=== PATIENT | female | born 1980 | race Caucasian/White ===

== ENCOUNTER 2016-05-18 12:14 | Emergency (ER) | payer BC, OTHER ==
[2016-05-18 12:59] VITALS: BP 141/62
[2016-05-18] MEDS ORDERED: Ibuprofen TAB* 400 MG PO ONE (13:03)
[2016-05-18] MEDS ORDERED: Tetan/Diph/Pertus SYR(Tdap)* 0.5 ML SYR(BOOSTRIX) use SYR IM ONE (13:13)
--- NOTE | 2016-05-18 13:23 | UC ---
Laceration HPI - HPI Summary HPI Summary: The patient comes in today for: 1. Left hand laceration: Onset: 4-5 hours ago. Palliative/provocative: Hand movement. Rest makes it better. Quality: Burning, ache. Region: Palm of the left hand. Severity: 6/10 Time: Constant. Associated symptoms: Tetanus vaccine: unknown date of last tetanus. Injury: She was using a kitchen knife to cut up carrots for horses. LMP: 1-2 weeks ago. * - History Of Current Complaint Chief Complaint: UCLaceration Stated Complaint: HAND LACERATION Time Seen by Provider: 05/18/16 13:02 Hx Obtained From: Patient - Allergies/Home Medications Allergies/Adverse Reactions: Allergies Allergy/AdvReac Type Severity Reaction Status Date / Time No Known Allergies Allergy Verified 05/18/16 12:59 Home Medications: Home Medications NK [No Home Medications Reported] 05/18/16 [History Confirmed 05/18/16] PMH/Surg Hx/FS Hx/Imm Hx Previously Healthy: Yes Endocrine History Of: Denies: Diabetes, Thyroid Disease, Hyperthyroidism, Hypothyroidism, Dyslipidemia Cardiovascular History Of: Denies: Cardiac Disorders, Hypertension, Pacemaker/ICD, Myocardial Infarction , Congestive Heart Failure, Atrial Fibrillation, Deep Vein Thrombosis, Bleeding Disorders Respiratory History Of: Denies: COPD, Asthma, Bronchitis, Pneumonia, Pulmonary Embolism GI/ History Of: Denies: Gastroesophageal Reflux, Ulcer, Gastrointestinal Bleed, Gall Bladder Disease, Kidney Stones, Diverticulitis, Renal Disease, Urosepsis Neurological History Of: Denies: TIA, CVA, Dementia, Seizures, Migraine Psychological History Of: Denies: Anxiety, Depression, Bipolar Disorder, Schizophrenia, Post Traumatic Stress Disorder Cancer History Of: Denies: Lung Cancer, Colorectal Cancer, Breast Cancer, Prostate Cancer, Cervical Cancer Other History Of: Negative For: HIV, Hepatitis B, Hepatitis C, Anticoagulant Therapy - Surgical History Surgical History: None - Family History Known Family History: Negative: Cardiac Disease, Hypertension - Social History Occupation: Employed Full-time Alcohol Use: Weekly Substance Use Type: None Smoking Status (MU): Former Smoker - Immunization History Most Recent Tetanus Shot: unknown Review of Systems Constitutional: Negative Skin: Negative Eyes: Negative ENT: Negative Respiratory: Negative Cardiovascular: Negative Gastrointestinal: Negative Genitourinary: Negative All Other Systems Reviewed And Are Negative: Yes Physical Exam Triage Information Reviewed: Yes Appearance: Well-Appearing, No Pain Distress, Well-Nourished Vital Signs: Initial Vital Signs Temp 98.2 F 05/18/16 12:57 Pulse 66 05/18/16 12:57 Resp 16 05/18/16 12:57 BP 141/62 05/18/16 12:57 Pulse Ox 100 05/18/16 12:57 Vital Signs Reviewed: Yes Eyes: Positive: Conjunctiva Clear. Negative: Discharge ENT: Positive: Hearing grossly normal. Negative: Pharyngeal erythema, Nasal congestion, Nasal drainage, TM bulging, TM dull, TM red, Tonsillar swelling, Tonsillar exudate Dental: Negative: Gross Decay/Caries @, Dental Fracture @ Neck: Positive: Supple, Nontender, No Lymphadenopathy. Negative: Nuchal Rigidity Respiratory: Positive: Chest non-tender, No respiratory distress, No accessory muscle use. Negative: Crackles, Wheezing Cardiovascular: Positive: RRR, No Murmur Abdomen Description: Positive: Nontender, No Organomegaly, Soft. Negative: Distended, Guarding Musculoskeletal: Positive: Strength Intact, ROM Intact Neurological: Positive: Alert, Muscle Tone Normal Psychological: Positive: Age Appropriate Behavior, Consolable Skin: Positive: Other - She had a 3 cm laceration to the palm of her left hand. She was able to make a fist and fully extend her hand.. Negative: rashes Laceration Repair - Laceration Repair 1 Laceration Size After Repair: Length (cm) - 3, Width (mm) - 3, Depth (mm) - 4 Anesthesia Used: 2.0% Lido Additive Used (in ml): Epi Cleansing Completed Via Routine Prep: Yes Irrigation With Pressure Irrigation Device: Yes Closure Material: Sutures Suture Of: Skin Suture Type: Nylon - Eight 4-0 Laceration Course/Dx - Differential Dx - Laceration/Wound Differental Diagnoses: Avulsion, Laceration, Tenosynovitis Provider Diagnoses: Laceration of the left palm. Discharge - Discharge Plan Condition: Stable Disposition: HOME Patient Education Materials: Laceration (ED), Care For Your Stitches (ED) Referrals: [facility] [place] [facility]ERR[facility] [Outside] No Primary Care Phys,NOPCP [Primary Care Provider] - 2 Weeks (Please see your primary care provider in 12-14 days to see how well you are doing and to remove stitches. If you don't have a primary care provider, please contact the physician referral service. If you can't get in timely, please you may come back to see us until you can. If you get worse, please be seen sooner by us or the ER.) Additional Instructions: Inspect the area daily watching for increased redness, tenderness, swelling or drainage. Gently clean the area with a mild soap such as Dove (without any scents or colorings) and apply Polysporin ointment to the wound. Cover with a non-stick dressing ( Telfa) for the rest of the day. When resting, you may expose the wound to light and air, but not direct sunlight. If there is any oozing, apply pressure. Apply cold compresses to the area for the first 1-2 days. Use [id number] pain medications as needed for pain. Cold compresses can help with pain reduction also. YOu may also use Bhavin's Baby Shampoo to clear the area.
[2016-05-18] MEDS ORDERED: Lidocaine 2% W/EPI 1:100,000* 20 ML MDV ONE (13:39)
== END 2016-05-18 14:25 | disposition home or self-care (01) ==
LOC: UCEAST 12:14
DX: S61.412A Laceration without foreign body of left hand, initial encounter (principal); W26.0XXA Contact with knife, initial encounter; Y93.G9 Activity, other involving cooking and grilling; Y92.9 Unspecified place or not applicable; Z87.891 Personal history of nicotine dependence; Z23 Encounter for immunization
CPT/HCPCS: 12002; 90471; 90715; 99212; A9270-GY; G0463